=== PATIENT | female | born 2005 | race Caucasian/White ===

== ENCOUNTER 2024-11-30 11:36 | Emergency (ER) | payer MEDICAID ==
[~2024-11-30] VITALS: Ht 162.6 cm; Wt 77.3 kg
[2024-11-30 11:38] VITALS: TEMP 98.4
[2024-11-30] MEDS ORDERED: METF-1211 PO (11:40)
[2024-11-30 12:34] LABS: PLATELET COUNT (AUTO) 277 K/uL (150-450); RED BLOOD CELL COUNT(AUTO) 4.22 MIL/uL (4.00-5.20); RED CELL DISTRIBUTION WIDTH 13.8 % (11.5-14.5); WHITE BLOOD COUNT (AUTO) 10.4 K/uL (4.5-11.0)
[2024-11-30 12:40] LABS: CALCIUM, TOTAL 8.4 mg/dL (8.8-10.5); CREATININE 0.51 mg/dL (0.60-1.30); GLOMERULAR FILTR. RATE CALC > 60 mL/min (>60); GLUCOSE,RANDOM 287 mg/dL (70-110); SODIUM SERUM 138 mmol/L (136-145); UREA NITROGEN, BLOOD 9 mg/dL (7-18)
[2024-11-30] MEDS ORDERED: SODIUM CHLORIDE 0.9% 100 ML ONE (13:15)
[2024-11-30] MEDS ORDERED: IOHEXOL 350 MG/ML 100 ML VIAL ONE (13:15)
[2024-11-30 13:27] LABS: ASPARTATE AMINOTRANSFERASE 21 U/L (15-37); TOTAL PROTEIN, SERUM 7.3 g/dL (6.4-8.2)
[2024-11-30] MEDS: MAG HYDROX/ALUMINUM HYD/SIMETH 30 ML SUSPENSION UDCUP PO ONE (14:32)
[2024-11-30] MEDS: SODIUM CHLORIDE 0.9% 1,000 ML IV ONE (14:32)
[2024-11-30] MEDS: ONDANSETRON HCL 4 MG/2 ML VIAL IVP ONE (14:32)
[2024-11-30] MEDS: KETOROLAC TROMETHAMINE 30 MG/ML VIAL IVP ONE (14:32)
[2024-11-30] MEDS: FAMOTIDINE 20 MG/2 ML VIAL IVP ONE (14:33)
[2024-11-30 15:41] LABS: APPEARANCE,URINE CLEAR (CLEAR); GLUCOSE, URINE (UA) NEGATIVE (NEGATIVE); LEUKOCYTE ESTERASE ,URINE NEGATIVE (NEGATIVE); NITRATE,URINE NEGATIVE (NEGATIVE); OCCULT BLOOD,URINE LARGE (NEGATIVE)
[2024-11-30] MEDS ORDERED: ACET-3385 PO (15:42)
[2024-11-30] MEDS ORDERED: IBUP-1492 PO (15:42)
[2024-11-30] MEDS ORDERED: ONDA-104 PO (15:42)
[2024-11-30 15:47] LABS: SPECIFIC GRAVITIY, URINE 1.030 (1.003-1.030)
[2024-11-30 15:57] LABS: SQUAMOUS EPITHELIAL CELL,UR Few /LPF (None Seen)
[2024-11-30 16:02] VITALS: BP 156/90; PULSE 70; RESP 16; O2SAT 99
== END 2024-11-30 17:24 | disposition home or self-care (01) ==
LOC: EMS 11:39
DX: K80.20 Calculus of gallbladder without cholecystitis without obstruction (principal); R10.13 Epigastric pain; R10.33 Periumbilical pain; E11.9 Type 2 diabetes mellitus without complications; Z79.899 Other long term (current) drug therapy
CPT/HCPCS: 99285; 74177; 96374; 76705; 96375; 96361; 80048; 80076; 81001; 82962; 83690; 84703; 85025; 36415; J1885; Q9967; J3490; J2405; J7030; J7050